=== PATIENT | female | born 1955 | race Caucasian/White ===

== ENCOUNTER → 2019-05-31 | Outpatient (CLI) | payer MEDICARE, OTHER | END | disposition home or self-care (01) | LOC: MAMMO 13:03 | DX: Z12.31 Encounter for screening mammogram for malignant neoplasm of breast (principal) ==

== ENCOUNTER → 2020-02-20 | Outpatient (CLI) | payer MEDICARE, OTHER | END | disposition home or self-care (01) | LOC: US 09:12 | PROVIDERS: ATTEND Nurse Practitioner Family | DX: K82.8 Other specified diseases of gallbladder (principal); R10.9 Unspecified abdominal pain ==

== ENCOUNTER → 2021-11-19 | Outpatient (CLI) | payer MEDICARE, OTHER | END | disposition home or self-care (01) | LOC: MAMMO 10:56 | PROVIDERS: ATTEND Nurse Practitioner Family | DX: Z12.31 Encounter for screening mammogram for malignant neoplasm of breast (principal); N64.89 Other specified disorders of breast ==

== ENCOUNTER → 2022-03-17 | Day surgery (SDC) | payer MEDICARE, OTHER ==
[~2022-03-17] VITALS: Ht 160 cm; Wt 65.8 kg
[~2022-03-17] MED LIST: ATENOLOL25 MG PO; LATANOPROST2.5 ML OP; LIPITOR10 MG PO
[2022-03-17 09:30] VITALS: BP 157/75
[2022-03-17 10:34] VITALS: BP 130/67
[2022-03-17 10:49] VITALS: BP 121/67
[2022-03-17 11:04] VITALS: BP 135/71
== END | disposition home or self-care (01) ==
LOC: SDC 12-11 13:15
PROVIDERS: ATTEND Ophthalmology
DX: H25.812 Combined forms of age-related cataract, left eye (principal); I10 Essential (primary) hypertension; E78.00 Pure hypercholesterolemia, unspecified; Z79.899 Other long term (current) drug therapy

== ENCOUNTER → 2022-10-13 | Day surgery (SDC) | payer MEDICARE, OTHER ==
[~2022-10-13] VITALS: Ht 157.4 cm; Wt 65.8 kg
[2022-10-13 11:34] VITALS: BP 155/84
[2022-10-13 12:46] VITALS: BP 111/69
[2022-10-13 13:01] VITALS: BP 124/68
[2022-10-13 13:13] VITALS: BP 143/70
== END | disposition home or self-care (01) ==
LOC: SDC 10-08 01:13
PROVIDERS: ATTEND Ophthalmology
DX: H25.811 Combined forms of age-related cataract, right eye (principal); I10 Essential (primary) hypertension; E78.00 Pure hypercholesterolemia, unspecified; Z79.899 Other long term (current) drug therapy

== ENCOUNTER → 2023-02-07 | Outpatient (CLI) | payer MEDICARE, OTHER | END | disposition home or self-care (01) | LOC: MAMMO 01:07 | PROVIDERS: ATTEND Nurse Practitioner | DX: Z12.31 Encounter for screening mammogram for malignant neoplasm of breast (principal); M85.80 Other specified disorders of bone density and structure, unspecified site; M81.0 Age-related osteoporosis without current pathological fracture ==

== ENCOUNTER → 2024-02-29 | Outpatient (CLI) | payer MEDICARE, OTHER | END | disposition home or self-care (01) | LOC: MAMMO 10:40 | PROVIDERS: ATTEND Nurse Practitioner | DX: Z12.31 Encounter for screening mammogram for malignant neoplasm of breast (principal); N63.20 Unspecified lump in the left breast, unspecified quadrant ==

== ENCOUNTER → 2024-04-03 | Outpatient (CLI) | payer MEDICARE, OTHER | END | disposition home or self-care (01) | LOC: RAD 01:35 | PROVIDERS: ATTEND Nurse Practitioner | DX: N60.02 Solitary cyst of left breast (principal); N63.20 Unspecified lump in the left breast, unspecified quadrant ==

== ENCOUNTER → 2025-04-15 | Outpatient (CLI) | payer MEDICARE, OTHER | END | disposition home or self-care (01) | LOC: MAMMO 00:27 | PROVIDERS: ATTEND Nurse Practitioner | DX: Z12.31 Encounter for screening mammogram for malignant neoplasm of breast (principal); N63.15 Unspecified lump in the right breast, overlapping quadrants; R92.313 Mammographic fatty tissue density, bilateral breasts ==

== ENCOUNTER → 2025-04-30 | Outpatient (CLI) | payer MEDICARE, OTHER | END | disposition home or self-care (01) | LOC: US 04:19 | PROVIDERS: ATTEND Nurse Practitioner | DX: N60.02 Solitary cyst of left breast (principal); N63.0 Unspecified lump in unspecified breast ==